=== PATIENT | male | born 1985 | race American Indian/Alaskan Native ===

== ENCOUNTER 2020-09-11 12:02 | Emergency (ER) | payer OTHER ==
[2020-09-11 12:52] VITALS: BP 133/62
[2020-09-11] MEDS ORDERED: ALBUTEROL 2.5 MG/3 ML NEBU IH ONE (12:55)
--- NOTE | 2020-09-11 13:07 | Emergency Department Report ---
ED Asthma HPI - General Chief Complaint: Dyspnea/Respdistress Stated Complaint: COUGH/WHEEZING/ASTHMA Time Seen by Provider: 09/11/20 12:53 Source: patient Mode of arrival: Ambulatory Limitations: No Limitations - History of Present Illness MD Complaint: wheezing -: Gradual, days(s) (2) Severity: mild Context: recent URI, smoke exposure (Tobacco smoke) Associated Symptoms: productive cough Treatments Prior to Arrival: inhaled bronchodilator - Related Data Current Asthma Therapy: inhaled bronchodilator Previous Rx's Medication Instructions Recorded Last Taken Type ALBUTEROL NEB's [Proventil 0.083% 2.5 mg IH TID PRN #30 neb 09/11/20 Unknown Rx NEBS] Albuterol Mdi (or & Nicu Only) 1 puff IH Q4-6H PRN #1 inha 09/11/20 Unknown Rx [ProAir HFA Inhaler] Montelukast [Singulair] 10 mg PO QPM #14 tablet 09/11/20 Unknown Rx Peak Flow Meter [[place] 1 each MC DAILY #1 each 09/11/20 Unknown Rx Peak Flow Meter] predniSONE [Deltasone] 20 mg PO QDAY #5 tab 09/11/20 Unknown Rx Allergies Allergy/AdvReac Type Severity Reaction Status Date / Time No Known Allergies Allergy Unverified 09/11/20 12:50 ED Review of Systems ROS: Stated complaint: COUGH/WHEEZING/ASTHMA Other details as noted in HPI Comment: All other systems reviewed and negative ED Past Medical Hx - Past Medical History Previous Medical History?: Yes Hx Asthma: Yes - Medications Home Medications: Home Medications Medication Instructions Recorded Confirmed Last Taken Type ALBUTEROL NEB's [Proventil 0.083% 2.5 mg IH TID PRN #30 neb 09/11/20 Unknown Rx NEBS] Albuterol Mdi (or & Nicu Only) 1 puff IH Q4-6H PRN #1 inha 09/11/20 Unknown Rx [ProAir HFA Inhaler] Montelukast [Singulair] 10 mg PO QPM #14 tablet 09/11/20 Unknown Rx Peak Flow Meter [[place] 1 each MC DAILY #1 each 09/11/20 Unknown Rx Peak Flow Meter] predniSONE [Deltasone] 20 mg PO QDAY #5 tab 09/11/20 Unknown Rx ED Physical Exam - General Limitations: No Limitations General appearance: alert, in no apparent distress - Head Head exam: Present: atraumatic, normocephalic - Eye Eye exam: Present: normal appearance, PERRL, EOMI - ENT ENT exam: Present: mucous membranes moist - Neck Neck exam: Present: normal inspection - Respiratory Respiratory exam: Present: normal lung sounds bilaterally, wheezes. Absent: respiratory distress - Cardiovascular Cardiovascular Exam: Present: regular rate, normal rhythm. Absent: systolic murmur, diastolic murmur, rubs, gallop - GI/Abdominal GI/Abdominal exam: Present: soft, normal bowel sounds - Rectal Rectal exam: Present: deferred - Extremities Exam Extremities exam: Present: normal inspection - Back Exam Back exam: Present: normal inspection - Neurological Exam Neurological exam: Present: alert, oriented X3 - Psychiatric Psychiatric exam: Present: normal affect, normal mood - Skin Skin exam: Present: warm, dry, intact, normal color. Absent: rash ED Course Vital Signs 09/11/20 12:51 Temperature 98.2 F Pulse Rate 71 Respiratory 20 Rate Blood Pressure 133/62 [Right] O2 Sat by Pulse 97 Oximetry Critical care attestation.: If time is entered above; I have spent that time in minutes in the direct care of this critically ill patient, excluding procedure time. ED Disposition Clinical Impression: Asthma flare Disposition: DC-01 TO HOME OR SELFCARE Is pt being admited?: No Does the pt Need Aspirin: No Condition: Stable Instructions: Asthma (ED) Additional Instructions: Please be sure to try to limit or refrain from smoking as it has been proven to trigger your asthma repetitively. When you do have an asthma flareup you may utilize the nebulizer solution or the metered-dose inhaler if you are away from home. If you are at home it may be more beneficial to utilize the nebulizer solution versus the metered-dose inhaler Prescriptions: Peak Flow Meter [[place] Peak Flow Meter] 1 each MC DAILY #1 each predniSONE [Deltasone] 20 mg PO QDAY #5 tab Albuterol Mdi (or & Nicu Only) [ProAir HFA Inhaler] 1 puff IH Q4-6H PRN #1 inha PRN Reason: Cough ALBUTEROL NEB's [Proventil 0.083% NEBS] 2.5 mg IH TID PRN #30 neb PRN Reason: Wheezing Montelukast [Singulair] 10 mg PO QPM #14 tablet Referrals: [facility] [Provider Group] - 3-5 Days TOREY SANTOS MD [Staff Physician] - 3-5 Days
== END 2020-09-11 14:41 | disposition home or self-care (01) ==
LOC: ED 12:02
DX: J45.909 Unspecified asthma, uncomplicated (principal); Z79.899 Other long term (current) drug therapy
CPT/HCPCS: 94640; 99282